=== PATIENT | male | born 1940 | race Caucasian/White ===

== ENCOUNTER 2020-09-23 15:15 | Inpatient (IN) ==
[2020-09-23] MEDS ORDERED: GI Cocktail 40 ML EACH PO ONE (15:41)
[2020-09-23] MEDS: Nitroglycerin 0.4 MG TAB.SUBL SL PRN ×3 (16:15→23:23)
[2020-09-23 16:20] LABS: Basophils # 0.1 K/mcL (0.0-0.2); Basophils % 0.5 %; Eosinophils # 0.1 K/mcL (0.0-0.6); Hematocrit 41.4 % (37.5-50.1); Hemoglobin 13.7 g/dL (12.9-16.9); Immature Granulocytes % 1.2 % (0-4); Lymphocytes # 1.3 K/mcL (0.6-4.6); Lymphocytes % 11.4 %; Mean Corpuscular HGB Conc 33.1 g/dL (31.6-35.5); Mean Corpuscular Hemoglobin 31.3 pg (28.0-33.3); Mean Corpuscular Volume 94.5 fL (83.0-100.0); Mean Platelet Volume 10.7 fL (9.4-12.4); Monocytes # 0.8 K/mcL (0.0-1.3); Monocytes % 6.8 %; Neutrophils # 8.9 K/mcL (1.6-8.9); Platelet Count 249 K/mcL (140-400); Red Blood Count 4.38 M/mcL (4.19-5.50); Red Cell Distribution Width 13.2 % (11.5-14.5); Segmented Neutrophils % 79.1 %; White Blood Count 11.3 K/mcL (4.3-11.1)
[2020-09-23] MEDS ORDERED: *HR* Ticagrelor 90 MG TABLET PO ONE (16:23)
[2020-09-23] MEDS ORDERED: ISOVUE-370 200 ML INFUS..BTL ONE ×2 (16:26→16:59)
[2020-09-23] MEDS ORDERED: *HR* Heparin 10,000 UNIT/10 ML VIAL ONE (16:26)
[2020-09-23] MEDS ORDERED: *HR* Ticagrelor 90 MG TABLET ONE (16:26)
[2020-09-23] MEDS ORDERED: 0.9 % Sodium Chloride 1,000 ML ONE ×3 (16:26→16:27)
[2020-09-23] MEDS ORDERED: Heparin 1,000 UNITS/500 mL 500 ML ONE (16:26)
[2020-09-23] MEDS ORDERED: Aspirin 81 MG TAB.CHEW ONE (16:26)
[2020-09-23] MEDS ORDERED: *HR* Heparin 5,000 UNIT/ML VIAL ONE (16:26)
[2020-09-23] MEDS ORDERED: Nitroglycerin 1,000 MCG/10 ML VIAL IV ONE (16:27)
[2020-09-23] MEDS ORDERED: Aspirin 81 MG TAB.CHEW PO STA (16:27)
[2020-09-23] MEDS ORDERED: *HR* Heparin 5,000 UNIT/ML VIAL IVP ONE (16:28)
[2020-09-23 16:29] LABS: INR 1.1; Prothrombin Time 12.7 Seconds (9.4-12.1)
[2020-09-23 16:31] LABS: Activated Partial Thrombo Time 30.5 Seconds (26.0-36.0)
[2020-09-23] MEDS ORDERED: Perflutren Lipid Microsphere 1.3 ML in 0.9 % Sodium Chloride 8.7 ML IVP PRN ×2 (16:41→16:42)
[2020-09-23 16:49] LABS: Alanine Aminotransferase 10 Units/L (7-52); Albumin 4.3 g/dL (3.5-5.7); Albumin/Globulin Ratio 1.7 (1.1-2.2); Alkaline Phosphatase 79 Units/L (34-104); Aspartate Amino Transferase 15 Units/L (13-39); BUN/Creatinine Ratio 19 (6-26); Bilirubin,Direct 0.1 mg/dL (0.0-0.2); Bilirubin,Indirect 0.3 mg/dL (0.0-1.0); Bilirubin,Total 0.4 mg/dL (0.3-1.0); Blood Urea Nitrogen 26 mg/dL (8-23); Calcium 9.8 mg/dL (8.6-10.3); Carbon Dioxide 29 mEq/L (23-29); Chloride 98 mEq/L (98-107); Globulin 2.6 g/dL (2.4-3.5); Glucose 244 mg/dL (70-105); Lipase 45 Units/L (11-82); Osmolality,Calculated 295 (280-300); Potassium 4.5 mEq/L (3.5-5.1); Sodium 136 mEq/L (136-145); Total Protein 6.9 g/dL (6.4-8.9); eGFR For African Americans > 60 (> 60); eGFR For Non-African Americans 51 (> 60)
[2020-09-23] MEDS ORDERED: *HR* FentaNYL (PF) 100 MCG/2 ML VIAL ONE (16:51)
[2020-09-23] MEDS ORDERED: *HR* Midazolam HCl 2 MG/2 ML VIAL ONE (16:51)
[2020-09-23] MEDS ORDERED: *HR* Bivalirudin 250 MG VIAL IVC ONE ×2 (16:54→17:31)
[2020-09-23] MEDS ORDERED: 0.9 % Sodium Chloride 1,000 ML IVC SCH (18:15)
[2020-09-23] MEDS ORDERED: Dextrose Gel 15 GM/37.5 ML TUBE PO PRN ×2 (18:19)
[2020-09-23] MEDS ORDERED: D5% in Water 1,000 ML IVC PRN (18:19)
[2020-09-23] MEDS ORDERED: *HR* Dextrose 50 % in Water (Vial) 50 ML VIAL IVP PRN (18:19)
[2020-09-23 18:50] LABS: Estimated Average Glucose 180 mg/dl
[2020-09-24] MEDS ORDERED: *HR* Atropine Sulfate 1 MG/10 ML SYRINGE ONE (00:04)
[2020-09-24 04:45] LABS: Basophils % 0.3 %; Eosinophils % 0.2 %; Hematocrit 36.8 % (37.5-50.1); Hemoglobin 12.3 g/dL (12.9-16.9); Immature Granulocytes % 0.8 % (0-4); Lymphocytes # 1.3 K/mcL (0.6-4.6); Lymphocytes % 9.9 %; Mean Corpuscular HGB Conc 33.4 g/dL (31.6-35.5); Mean Corpuscular Hemoglobin 30.9 pg (28.0-33.3); Mean Corpuscular Volume 92.5 fL (83.0-100.0); Mean Platelet Volume 10.6 fL (9.4-12.4); Monocytes # 1.3 K/mcL (0.0-1.3); Monocytes % 10.2 %; Neutrophils # 10.3 K/mcL (1.6-8.9); Platelet Count 222 K/mcL (140-400); Red Blood Count 3.98 M/mcL (4.19-5.50); Red Cell Distribution Width 13.3 % (11.5-14.5); Segmented Neutrophils % 78.6 %; White Blood Count 13.1 K/mcL (4.3-11.1)
[2020-09-24 05:05] LABS: BUN/Creatinine Ratio 18 (6-26); Blood Urea Nitrogen 21 mg/dL (8-23); Calcium 9.2 mg/dL (8.6-10.3); Carbon Dioxide 24 mEq/L (23-29); Chloride 101 mEq/L (98-107); Cholesterol 87 mg/dL (< 200); Glucose 149 mg/dL (70-105); HDL Cholesterol 29 mg/dL (40-59); LDL Cholesterol,Calculated 29 mg/dL (< 100); Osmolality,Calculated 286 (280-300); Sodium 135 mEq/L (136-145); Triglycerides 143 mg/dL (< 150); eGFR For African Americans > 60 (> 60); eGFR For Non-African Americans 60 (> 60)
[2020-09-24] MEDS: Nitroglycerin 0.4 MG TAB.SUBL SL PRN (05:54)
[2020-09-24] MEDS ORDERED: *HR* Heparin 5,000 UNIT/ML VIAL IVP PRN (06:19)
[2020-09-24] MEDS ORDERED: Heparin 25,000UNIT/250ML 1/2NS 25,000 UNIT/250 ML IV.SOLN IVC SCH (06:30)
[2020-09-24 07:06] LABS: Hemoglobin 12.8 g/dL (12.9-16.9); Mean Corpuscular HGB Conc 32.8 g/dL (31.6-35.5); Mean Corpuscular Hemoglobin 30.6 pg (28.0-33.3); Mean Corpuscular Volume 93.3 fL (83.0-100.0); Mean Platelet Volume 10.6 fL (9.4-12.4); Platelet Count 252 K/mcL (140-400); Red Blood Count 4.18 M/mcL (4.19-5.50); Red Cell Distribution Width 13.5 % (11.5-14.5); White Blood Count 13.4 K/mcL (4.3-11.1)
[2020-09-24] MEDS ORDERED: Morphine Sulfate 2 MG/ML SYRINGE IVP ONE ×2 (07:12→17:42)
[2020-09-24 07:15] LABS: Heparin anti-factor XA UFH 0.04 IU/mL (0.30-0.70); INR 1.1; Prothrombin Time 12.8 Seconds (9.4-12.1)
[2020-09-24] MEDS: carvediloL 6.25 MG TABLET PO SCH ×2 (08:09→17:34)
[2020-09-24] MEDS ORDERED: Aspirin 81 MG TAB.CHEW PO SCH (09:00)
[2020-09-24] MEDS ORDERED: *HR* Ticagrelor 90 MG TABLET PO SCH (09:00)
[2020-09-24] MEDS ORDERED: *HR* Heparin 10,000 UNIT/10 ML VIAL ONE (09:34)
[2020-09-24] MEDS ORDERED: ISOVUE-370 200 ML INFUS..BTL ONE (09:34)
[2020-09-24] MEDS ORDERED: Heparin 1,000 UNITS/500 mL 500 ML ONE (09:34)
[2020-09-24] MEDS ORDERED: Nitroglycerin 1,000 MCG/10 ML VIAL IV ONE (09:34)
[2020-09-24] MEDS ORDERED: 0.9 % Sodium Chloride 1,000 ML ONE ×2 (09:34→09:37)
[2020-09-24] MEDS: Insulin LISPRO 300 UNITS/3 ML VIAL SQ SCH ×3 (09:38→17:26)
[2020-09-24] MEDS ORDERED: *HR* Midazolam HCl 2 MG/2 ML VIAL ONE (09:40)
[2020-09-24] MEDS ORDERED: *HR* FentaNYL (PF) 100 MCG/2 ML VIAL ONE (09:40)
[2020-09-24] MEDS ORDERED: Isosorbide MONOnitrate (24 HR) 30 MG TAB.ER.24H PO SCH (15:45)
[2020-09-24] MEDS ORDERED: Dextrose Gel 15 GM/37.5 ML TUBE PO PRN ×2 (17:42)
[2020-09-24] MEDS ORDERED: Nitroglycerin 0.4 MG TAB.SUBL SL PRN (17:42)
[2020-09-24] MEDS ORDERED: D5% in Water 1,000 ML IVC PRN (17:42)
[2020-09-24] MEDS ORDERED: Perflutren Lipid Microsphere 1.3 ML in 0.9 % Sodium Chloride 8.7 ML IVP PRN (17:42)
[2020-09-24] MEDS ORDERED: *HR* Dextrose 50 % in Water (Vial) 50 ML VIAL IVP PRN (17:42)
[2020-09-24] MEDS ORDERED: *HR* Heparin 5,000 UNIT/ML VIAL SQ SCH (18:00)
[2020-09-24] MEDS: *HR* Heparin 5,000 UNIT/ML VIAL SQ SCH (18:16)
[2020-09-24] MEDS: *HR* Ticagrelor 90 MG TABLET PO SCH (20:15)
[2020-09-25] MEDS: *HR* Heparin 5,000 UNIT/ML VIAL SQ SCH (05:45)
[2020-09-25 06:00] LABS: Basophils % 0.4 %; Eosinophils # 0.1 K/mcL (0.0-0.6); Eosinophils % 0.7 %; Hematocrit 33.6 % (37.5-50.1); Immature Granulocytes % 0.9 % (0-4); Lymphocytes # 1.6 K/mcL (0.6-4.6); Lymphocytes % 14.9 %; Mean Corpuscular HGB Conc 32.1 g/dL (31.6-35.5); Mean Corpuscular Hemoglobin 30.5 pg (28.0-33.3); Mean Corpuscular Volume 94.9 fL (83.0-100.0); Mean Platelet Volume 10.4 fL (9.4-12.4); Monocytes # 1.2 K/mcL (0.0-1.3); Monocytes % 11.2 %; Neutrophils # 7.7 K/mcL (1.6-8.9); Platelet Count 199 K/mcL (140-400); Red Blood Count 3.54 M/mcL (4.19-5.50); Red Cell Distribution Width 13.7 % (11.5-14.5); Segmented Neutrophils % 71.9 %; White Blood Count 10.7 K/mcL (4.3-11.1)
[2020-09-25 06:01] LABS: Hemoglobin 10.8 g/dL (12.9-16.9)
[2020-09-25 06:23] LABS: BUN/Creatinine Ratio 18 (6-26); Blood Urea Nitrogen 25 mg/dL (8-23); Calcium 9.2 mg/dL (8.6-10.3); Carbon Dioxide 25 mEq/L (23-29); Chloride 102 mEq/L (98-107); Glucose 132 mg/dL (70-105); Osmolality,Calculated 288 (280-300); Potassium 4.1 mEq/L (3.5-5.1); Sodium 136 mEq/L (136-145); eGFR For African Americans > 60 (> 60); eGFR For Non-African Americans 50 (> 60)
[2020-09-25] MEDS ORDERED: carvediloL 6.25 MG TABLET PO SCH (08:00)
[2020-09-25] MEDS: Finasteride 5 MG TABLET PO SCH (08:58)
[2020-09-25] MEDS: Aspirin 81 MG TAB.CHEW PO SCH (08:58)
[2020-09-25] MEDS: Isosorbide MONOnitrate (24 HR) 30 MG TAB.ER.24H PO SCH (08:58)
[2020-09-25] MEDS: *HR* Ticagrelor 90 MG TABLET PO SCH ×2 (08:59→20:18)
[2020-09-25] MEDS ORDERED: Loratadine 10 MG TABLET PO SCH (09:00)
[2020-09-25] MEDS: Insulin LISPRO 300 UNITS/3 ML VIAL SQ SCH ×3 (09:04→16:53)
[2020-09-25] MEDS ORDERED: *HR* Heparin 5,000 UNIT/ML VIAL IVP ONE (09:23)
[2020-09-25] MEDS ORDERED: *HR* Heparin 5,000 UNIT/ML VIAL IVP PRN ×2 (09:23)
[2020-09-25] MEDS: Heparin 25,000UNIT/250ML 1/2NS 25,000 UNIT/250 ML IV.SOLN IVC SCH (12:22)
[2020-09-25] MEDS: *HR* Amiodarone 200 MG TABLET PO SCH ×2 (12:31→20:17)
[2020-09-25 14:08] LABS: Hematocrit 32.8 % (37.5-50.1); Hemoglobin 10.8 g/dL (12.9-16.9); Mean Corpuscular HGB Conc 32.9 g/dL (31.6-35.5); Mean Corpuscular Hemoglobin 31.5 pg (28.0-33.3); Mean Corpuscular Volume 95.6 fL (83.0-100.0); Mean Platelet Volume 11.1 fL (9.4-12.4); Platelet Count 211 K/mcL (140-400); Red Blood Count 3.43 M/mcL (4.19-5.50); Red Cell Distribution Width 13.5 % (11.5-14.5); White Blood Count 10.3 K/mcL (4.3-11.1)
[2020-09-25 14:29] LABS: Calcium 8.8 mg/dL (8.6-10.3); Potassium 4.2 mEq/L (3.5-5.1)
[2020-09-25] MEDS ORDERED: Loratadine 10 MG TABLET PO ONE (19:37)
[2020-09-25] MEDS: Metoprolol XL (24 HR) Succ 25 MG TAB.ER.24H PO SCH (20:18)
[2020-09-26 07:21] VITALS: BP 132/74
[2020-09-26] MEDS: Finasteride 5 MG TABLET PO SCH (08:16)
[2020-09-26] MEDS: Isosorbide MONOnitrate (24 HR) 30 MG TAB.ER.24H PO SCH (08:16)
[2020-09-26] MEDS: *HR* Ticagrelor 90 MG TABLET PO SCH (08:17)
[2020-09-26] MEDS: Metoprolol XL (24 HR) Succ 25 MG TAB.ER.24H PO SCH (08:17)
[2020-09-26] MEDS: Aspirin 81 MG TAB.CHEW PO SCH (08:18)
[2020-09-26] MEDS: Insulin LISPRO 300 UNITS/3 ML VIAL SQ SCH ×2 (08:18→12:45)
[2020-09-26] MEDS: *HR* Amiodarone 200 MG TABLET PO SCH (08:18)
[2020-09-26] MEDS ORDERED: 0.9 % Sodium Chloride 1,000 ML IVC SCH (09:00)
[2020-09-26 10:00] LABS: Basophils # 0.1 K/mcL (0.0-0.2); Basophils % 0.7 %; Eosinophils # 0.1 K/mcL (0.0-0.6); Eosinophils % 0.9 %; Hematocrit 34.9 % (37.5-50.1); Hemoglobin 11.4 g/dL (12.9-16.9); Immature Granulocytes % 0.9 % (0-4); Lymphocytes # 1.6 K/mcL (0.6-4.6); Lymphocytes % 16.2 %; Mean Corpuscular HGB Conc 32.7 g/dL (31.6-35.5); Mean Corpuscular Hemoglobin 30.9 pg (28.0-33.3); Mean Corpuscular Volume 94.6 fL (83.0-100.0); Monocytes # 0.8 K/mcL (0.0-1.3); Monocytes % 8.5 %; Platelet Count 225 K/mcL (140-400); Red Blood Count 3.69 M/mcL (4.19-5.50); Red Cell Distribution Width 13.6 % (11.5-14.5); Segmented Neutrophils % 72.8 %; White Blood Count 9.7 K/mcL (4.3-11.1)
[2020-09-26 10:21] LABS: Potassium 3.8 mEq/L (3.5-5.1)
[2020-09-26] MEDS ORDERED: Apixaban 5 MG TABLET PO SCH (12:30)
[2020-09-26] MEDS: Heparin 25,000UNIT/250ML 1/2NS 25,000 UNIT/250 ML IV.SOLN IVC SCH (12:55)
[2020-09-27] MEDS ORDERED: *HR* Amiodarone 200 MG TABLET PO SCH (09:00)
== END 2020-09-26 15:45 | disposition home or self-care (01) | DRG 247 ==
LOC: EMEROOARM 15:15 → ICNU 17:06
PROVIDERS: ADMIT Internal Medicine; ATTEND Internal Medicine

== ENCOUNTER 2020-12-27 05:12 | Inpatient (IN) ==
[2020-12-27 06:19] LABS: Basophils # 0.1 K/mcL (0.0-0.2); Basophils % 0.5 %; Eosinophils # 0.2 K/mcL (0.0-0.6); Eosinophils % 1.3 %; Hematocrit 28.5 % (37.5-50.1); Hemoglobin 9.1 g/dL (12.9-16.9); Immature Granulocytes % 0.7 % (0-4); Lymphocytes # 2.1 K/mcL (0.6-4.6); Lymphocytes % 17.4 %; Mean Corpuscular HGB Conc 31.9 g/dL (31.6-35.5); Mean Corpuscular Hemoglobin 28.2 pg (28.0-33.3); Mean Corpuscular Volume 88.2 fL (83.0-100.0); Mean Platelet Volume 10.1 fL (9.4-12.4); Monocytes % 8.1 %; Neutrophils # 8.6 K/mcL (1.6-8.9); Platelet Count 416 K/mcL (140-400); Red Blood Count 3.23 M/mcL (4.19-5.50); Red Cell Distribution Width 15.9 % (11.5-14.5); White Blood Count 11.9 K/mcL (4.3-11.1)
[2020-12-27 06:42] LABS: Alanine Aminotransferase 19 Units/L (7-52); Albumin 3.1 g/dL (3.5-5.7); Albumin/Globulin Ratio 0.8 (1.1-2.2); Alkaline Phosphatase 84 Units/L (34-104); Aspartate Amino Transferase 19 Units/L (13-39); BUN/Creatinine Ratio 10 (6-26); Bilirubin,Direct 0.2 mg/dL (0.0-0.2); Bilirubin,Indirect 0.3 mg/dL (0.0-1.0); Bilirubin,Total 0.5 mg/dL (0.3-1.0); Blood Urea Nitrogen 11 mg/dL (8-23); Calcium 9.1 mg/dL (8.6-10.3); Carbon Dioxide 28 mEq/L (23-29); Chloride 98 mEq/L (98-107); Globulin 3.7 g/dL (2.4-3.5); Glucose 111 mg/dL (70-105); Lipase 32 Units/L (11-82); Osmolality,Calculated 278 (280-300); Potassium 3.6 mEq/L (3.5-5.1); Sodium 134 mEq/L (136-145); Total Protein 6.8 g/dL (6.4-8.9); eGFR For African Americans > 60 (> 60); eGFR For Non-African Americans > 60 (> 60)
[2020-12-27] MEDS ORDERED: Isovue-370 500 ML BOTTLE IVP ONE (06:53)
[2020-12-27 08:09] LABS: Bacteria,Urine Few per hpf (None-Few); Bilirubin,Urine Negative (Negative); Blood,Urine Large (Negative); Clarity,Urine Clear (Clear); Color,Urine Colorless (Yellow); Glucose,Urine (UA) Normal (Normal); Ketones,Urine Negative (Negative); Leukocyte Esterase,Urine Moderate (Negative); Nitrite,Urine Negative (Negative); Protein,Urine Trace mg/dL (Neg-Trace); RBC,Urine TNTC per hpf (0-3); Specific Gravity,Urine 1.023 (1.010-1.025); Urobilinogen,Urine Normal (Normal)
[2020-12-27] MEDS ORDERED: Ondansetron 4 MG/2 ML VIAL IVP PRN (09:40)
[2020-12-27] MEDS ORDERED: Dextrose Gel 15 GM/37.5 ML TUBE PO PRN ×2 (09:40)
[2020-12-27] MEDS ORDERED: *HR* HYDROcodone/Acet 5/325 mg TABLET PO PRN (09:40)
[2020-12-27] MEDS ORDERED: D5% in Water 1,000 ML IVC PRN (09:40)
[2020-12-27] MEDS ORDERED: *HR* Dextrose 50 % in Water (Vial) 50 ML VIAL IVP PRN (09:40)
[2020-12-27] MEDS ORDERED: Naloxone 0.4 MG/ML INJ IVP PRN (09:40)
[2020-12-27] MEDS ORDERED: Aspirin 81 MG TAB.CHEW PO SCH (09:45)
[2020-12-27] MEDS: *HR* Amiodarone 200 MG TABLET PO SCH (12:21)
[2020-12-27] MEDS: Isosorbide MONOnitrate (24 HR) 30 MG TAB.ER.24H PO SCH (12:21)
[2020-12-27] MEDS: Metoprolol XL (24 HR) Succ 25 MG TAB.ER.24H PO SCH ×2 (12:21→20:49)
[2020-12-27] MEDS: Finasteride 5 MG TABLET PO SCH (12:22)
[2020-12-27] MEDS: *HR* Ticagrelor 90 MG TABLET PO SCH ×2 (12:22→20:49)
[2020-12-27] MEDS: Insulin LISPRO 300 UNITS/3 ML VIAL SUBQ SCH ×2 (12:23→16:22)
[2020-12-27 12:31] LABS: Hematocrit 26.6 % (37.5-50.1); Hemoglobin 8.4 g/dL (12.9-16.9)
[2020-12-27] MEDS ORDERED: polyethylene glycoL 3350 17 GM POWD.PACK PO PRN (13:07)
[2020-12-27 20:28] LABS: Hematocrit 24.1 % (37.5-50.1); Hemoglobin 7.7 g/dL (12.9-16.9)
[2020-12-28] MEDS ORDERED: 0.9 % Sodium Chloride 250 ML IVC SCH (02:45)
[2020-12-28] MEDS: Acetaminophen 325 MG TABLET PO PRN ×2 (02:53→15:42)
[2020-12-28] MEDS: Loratadine 10 MG TABLET PO SCH (02:59)
[2020-12-28 03:38] LABS: Basophils # 0.1 K/mcL (0.0-0.2); Basophils % 0.5 %; Eosinophils # 0.1 K/mcL (0.0-0.6); Hemoglobin 7.7 g/dL (12.9-16.9); Immature Granulocytes % 0.8 % (0-4); Lymphocytes # 1.2 K/mcL (0.6-4.6); Lymphocytes % 11.1 %; Mean Corpuscular HGB Conc 32.1 g/dL (31.6-35.5); Mean Corpuscular Volume 87.3 fL (83.0-100.0); Mean Platelet Volume 9.9 fL (9.4-12.4); Monocytes % 9.1 %; Neutrophils # 8.3 K/mcL (1.6-8.9); Platelet Count 342 K/mcL (140-400); Red Blood Count 2.75 M/mcL (4.19-5.50); Red Cell Distribution Width 16.1 % (11.5-14.5); Segmented Neutrophils % 77.5 %; White Blood Count 10.7 K/mcL (4.3-11.1)
[2020-12-28 03:54] LABS: BUN/Creatinine Ratio 11 (6-26); Blood Urea Nitrogen 13 mg/dL (8-23); Calcium 8.3 mg/dL (8.6-10.3); Carbon Dioxide 27 mEq/L (23-29); Chloride 100 mEq/L (98-107); Glucose 110 mg/dL (70-105); Magnesium 1.6 mg/dL (1.6-2.6); Osmolality,Calculated 279 (280-300); Phosphorous 1.7 mg/dL (2.7-4.5); Potassium 3.4 mEq/L (3.5-5.1); Sodium 134 mEq/L (136-145); eGFR For African Americans > 60 (> 60); eGFR For Non-African Americans 59 (> 60)
[2020-12-28] MEDS: lisinopriL 20 MG TABLET PO SCH (07:55)
[2020-12-28] MEDS: Insulin LISPRO 300 UNITS/3 ML VIAL SUBQ SCH ×3 (07:55→17:38)
[2020-12-28] MEDS: Isosorbide MONOnitrate (24 HR) 30 MG TAB.ER.24H PO SCH (07:56)
[2020-12-28] MEDS: Metoprolol XL (24 HR) Succ 25 MG TAB.ER.24H PO SCH ×2 (07:56→22:52)
[2020-12-28] MEDS: *HR* Amiodarone 200 MG TABLET PO SCH (07:56)
[2020-12-28] MEDS: *HR* Ticagrelor 90 MG TABLET PO SCH ×2 (07:56→20:31)
[2020-12-28] MEDS: Finasteride 5 MG TABLET PO SCH (07:56)
[2020-12-28] MEDS: Magnesium Oxide 400 MG TABLET PO SCH (07:56)
[2020-12-28] MEDS ORDERED: Potassium Phosphate 44 MEQ in 0.9 % Sodium Chloride 250 ML IVPB ONE (08:29)
[2020-12-28] MEDS ORDERED: SELENIUM 200 MCG PO SCH (09:00)
[2020-12-28] MEDS ORDERED: Finasteride 5 MG TABLET PO SCH (09:00)
[2020-12-28] MEDS ORDERED: Loratadine 10 MG TABLET PO SCH (09:00)
[2020-12-28 09:12] LABS: Hematocrit 28.2 % (37.5-50.1); Hemoglobin 9.1 g/dL (12.9-16.9)
[2020-12-28 17:06] LABS: Hematocrit 26.3 % (37.5-50.1); Hemoglobin 8.5 g/dL (12.9-16.9)
[2020-12-28 21:57] LABS: Hemoglobin 8.7 g/dL (12.9-16.9)
[2020-12-29 05:41] LABS: Basophils # 0.1 K/mcL (0.0-0.2); Basophils % 0.6 %; Eosinophils # 0.1 K/mcL (0.0-0.6); Eosinophils % 1.2 %; Hematocrit 26.8 % (37.5-50.1); Hemoglobin 8.5 g/dL (12.9-16.9); Immature Granulocytes % 0.8 % (0-4); Mean Corpuscular HGB Conc 31.7 g/dL (31.6-35.5); Mean Corpuscular Hemoglobin 27.8 pg (28.0-33.3); Mean Corpuscular Volume 87.6 fL (83.0-100.0); Mean Platelet Volume 10.1 fL (9.4-12.4); Monocytes # 0.9 K/mcL (0.0-1.3); Monocytes % 8.4 %; Platelet Count 346 K/mcL (140-400); Red Blood Count 3.06 M/mcL (4.19-5.50); Red Cell Distribution Width 16.1 % (11.5-14.5); White Blood Count 11.2 K/mcL (4.3-11.1)
[2020-12-29 06:49] LABS: BUN/Creatinine Ratio 10 (6-26); Blood Urea Nitrogen 13 mg/dL (8-23); Calcium 8.5 mg/dL (8.6-10.3); Carbon Dioxide 26 mEq/L (23-29); Chloride 102 mEq/L (98-107); Glucose 115 mg/dL (70-105); Magnesium 1.6 mg/dL (1.6-2.6); Osmolality,Calculated 283 (280-300); Phosphorous 3.2 mg/dL (2.7-4.5); Potassium 3.5 mEq/L (3.5-5.1); Sodium 136 mEq/L (136-145); eGFR For African Americans > 60 (> 60); eGFR For Non-African Americans 54 (> 60)
[2020-12-29] MEDS: Metoprolol XL (24 HR) Succ 25 MG TAB.ER.24H PO SCH ×2 (07:01→19:30)
[2020-12-29] MEDS: lisinopriL 20 MG TABLET PO SCH (07:01)
[2020-12-29] MEDS: *HR* Amiodarone 200 MG TABLET PO SCH (08:57)
[2020-12-29] MEDS: Magnesium Oxide 400 MG TABLET PO SCH (08:57)
[2020-12-29] MEDS: Loratadine 10 MG TABLET PO SCH (08:58)
[2020-12-29] MEDS: hydroCHLOROthiazide 25 MG TABLET PO SCH (08:58)
[2020-12-29] MEDS: Insulin LISPRO 300 UNITS/3 ML VIAL SUBQ SCH ×3 (08:59→16:07)
[2020-12-29] MEDS: *HR* Ticagrelor 90 MG TABLET PO SCH ×2 (08:59→19:30)
[2020-12-29] MEDS: Isosorbide MONOnitrate (24 HR) 30 MG TAB.ER.24H PO SCH (09:01)
[2020-12-29] MEDS: Finasteride 5 MG TABLET PO SCH (09:01)
[2020-12-29] MEDS: ALPRAZolam 0.25 MG TABLET PO PRN ×2 (09:04→19:29)
[2020-12-29] MEDS ORDERED: Isovue-370 500 ML BOTTLE IVP ONE (09:06)
[2020-12-29] MEDS ORDERED: amLODIPine 5 MG TABLET PO SCH (10:15)
[2020-12-29] MEDS: amLODIPine 5 MG TABLET PO SCH (16:04)
[2020-12-30 01:27] LABS: Basophils # 0.1 K/mcL (0.0-0.2); Basophils % 0.6 %; Eosinophils # 0.2 K/mcL (0.0-0.6); Eosinophils % 1.5 %; Hematocrit 26.5 % (37.5-50.1); Hemoglobin 8.6 g/dL (12.9-16.9); Immature Granulocytes % 0.7 % (0-4); Lymphocytes # 1.3 K/mcL (0.6-4.6); Lymphocytes % 12.2 %; Mean Corpuscular HGB Conc 32.5 g/dL (31.6-35.5); Mean Corpuscular Hemoglobin 27.7 pg (28.0-33.3); Mean Corpuscular Volume 85.5 fL (83.0-100.0); Monocytes # 0.9 K/mcL (0.0-1.3); Monocytes % 8.6 %; Neutrophils # 8.2 K/mcL (1.6-8.9); Platelet Count 361 K/mcL (140-400); Red Cell Distribution Width 16.3 % (11.5-14.5); Segmented Neutrophils % 76.4 %; White Blood Count 10.8 K/mcL (4.3-11.1)
[2020-12-30 01:50] LABS: % Iron Saturation 7 % (20-55); BUN/Creatinine Ratio 10 (6-26); Blood Urea Nitrogen 13 mg/dL (8-23); Calcium 8.5 mg/dL (8.6-10.3); Carbon Dioxide 28 mEq/L (23-29); Chloride 99 mEq/L (98-107); Glucose 111 mg/dL (70-105); Iron 15 mcg/dL (65-175); Magnesium 1.6 mg/dL (1.6-2.6); Osmolality,Calculated 283 (280-300); Phosphorous 3.6 mg/dL (2.7-4.5); Potassium 2.9 mEq/L (3.5-5.1); Sodium 136 mEq/L (136-145); Transferrin 147 mg/dL (203-362); eGFR For African Americans > 60 (> 60); eGFR For Non-African Americans 51 (> 60)
[2020-12-30 02:08] LABS: Ferritin 227 ng/mL (20-250)
[2020-12-30 02:13] LABS: Folate 11.1 ng/mL (3.0-16.0)
[2020-12-30] MEDS: Insulin LISPRO 300 UNITS/3 ML VIAL SUBQ SCH ×2 (08:25→11:45)
[2020-12-30] MEDS ORDERED: Potassium Chloride 20 MEQ, Lidocaine 1% 2 ML in 0.9 % Sodium Chloride 250 ML IVPB ONE (08:28)
[2020-12-30] MEDS: Isosorbide MONOnitrate (24 HR) 30 MG TAB.ER.24H PO SCH (08:37)
[2020-12-30] MEDS: *HR* Amiodarone 200 MG TABLET PO SCH (08:37)
[2020-12-30] MEDS: lisinopriL 20 MG TABLET PO SCH (08:38)
[2020-12-30] MEDS: Metoprolol XL (24 HR) Succ 25 MG TAB.ER.24H PO SCH (08:38)
[2020-12-30] MEDS: *HR* Ticagrelor 90 MG TABLET PO SCH (08:38)
[2020-12-30] MEDS: Finasteride 5 MG TABLET PO SCH (08:38)
[2020-12-30] MEDS: hydroCHLOROthiazide 25 MG TABLET PO SCH (08:38)
[2020-12-30] MEDS: Magnesium Oxide 400 MG TABLET PO SCH (08:38)
[2020-12-30] MEDS: amLODIPine 5 MG TABLET PO SCH (08:38)
[2020-12-30] MEDS: Loratadine 10 MG TABLET PO SCH (08:39)
[2020-12-30 10:53] VITALS: BP 131/62
[2020-12-30 13:03] LABS: Calcium 8.2 mg/dL (8.6-10.3); Potassium 3.3 mEq/L (3.5-5.1)
== END 2020-12-30 14:59 | disposition home or self-care (01) | DRG 698 ==
LOC: EMEROOARM 05:12 → 3BNU 05:12 → SUATTDRO 09:33 → 3BNU 10:11
PROVIDERS: ADMIT Internal Medicine; ATTEND Internal Medicine

== ENCOUNTER 2022-02-16 08:21 | Inpatient (IN) ==
[2022-02-16] MEDS ORDERED: 0.9 % Sodium Chloride 1,000 ML ONE ×4 (08:28→12:21)
[2022-02-16] MEDS ORDERED: Heparin 1,000 UNITS/500 mL 1,000 ML ONE (10:33)
[2022-02-16] MEDS ORDERED: Protamine Sulfate 50 MG/5 ML VIAL IVP ONE ×2 (10:33→12:37)
[2022-02-16] MEDS ORDERED: *HR* Heparin 10,000 UNIT/10 ML VIAL ONE (10:33)
[2022-02-16] MEDS ORDERED: ISOVUE-370 200 ML INFUS..BTL ONE (10:34)
[2022-02-16] MEDS ORDERED: *HR* Rocuronium Bromide 50 MG/5 ML VIAL ONE ×2 (11:00→12:20)
[2022-02-16] MEDS ORDERED: Perflutren Lipid Microsphere 1.3 ML in 0.9 % Sodium Chloride 8.7 ML IVP PRN (14:25)
[2022-02-16] MEDS ORDERED: Dextrose 4 GM Chewable Tablets PO PRN ×2 (14:27)
[2022-02-16] MEDS ORDERED: D5% in Water 1,000 ML IVC PRN (14:27)
[2022-02-16] MEDS ORDERED: *HR* Dextrose 50 % in Water (Syg) 50 ML SYRINGE IVP PRN (14:27)
[2022-02-16] MEDS: Insulin LISPRO 300 UNITS/3 ML VIAL SUBQ SCH (16:56)
[2022-02-16] MEDS ORDERED: hydrOXYzine pamoate 25 MG CAPSULE PO PRN (19:57)
[2022-02-16] MEDS ORDERED: ALPRAZolam 0.25 MG TABLET PO PRN (20:00)
[2022-02-16] MEDS: Apixaban 5 MG TABLET PO SCH (20:14)
[2022-02-16] MEDS: carvediloL 6.25 MG TABLET PO SCH (20:14)
[2022-02-16] MEDS: Sucralfate 1 GM TABLET PO SCH (22:41)
[2022-02-17 05:57] LABS: Basophils % 0.2 %; Hematocrit 28.4 % (37.5-50.1); Hemoglobin 9.4 g/dL (12.9-16.9); Immature Granulocytes % 0.4 % (0-4); Lymphocytes # 0.9 K/mcL (0.6-4.6); Lymphocytes % 10.9 %; Mean Corpuscular HGB Conc 33.1 g/dL (31.6-35.5); Mean Corpuscular Hemoglobin 30.4 pg (28.0-33.3); Mean Corpuscular Volume 91.9 fL (83.0-100.0); Mean Platelet Volume 11.4 fL (9.4-12.4); Monocytes # 0.5 K/mcL (0.0-1.3); Neutrophils # 6.8 K/mcL (1.6-8.9); Platelet Count 179 K/mcL (140-400); Red Blood Count 3.09 M/mcL (4.19-5.50); Red Cell Distribution Width 14.4 % (11.5-14.5); Segmented Neutrophils % 82.5 %; White Blood Count 8.3 K/mcL (4.3-11.1)
[2022-02-17 06:00] LABS: INR 1.9; Prothrombin Time 21.5 Seconds (9.4-12.1)
[2022-02-17] MEDS: Sucralfate 1 GM TABLET PO SCH (06:28)
[2022-02-17 06:34] LABS: Calcium 8.8 mg/dL (8.6-10.3); Potassium 3.7 mEq/L (3.5-5.1)
[2022-02-17] MEDS ORDERED: Sucralfate 1 GM TABLET PO SCH ×2 (07:30→09:00)
[2022-02-17] MEDS: Insulin LISPRO 300 UNITS/3 ML VIAL SUBQ SCH ×2 (07:51→12:38)
[2022-02-17] MEDS: carvediloL 6.25 MG TABLET PO SCH (07:52)
[2022-02-17] MEDS: Apixaban 5 MG TABLET PO SCH (07:52)
[2022-02-17] MEDS ORDERED: Finasteride 5 MG TABLET PO SCH (09:00)
[2022-02-17] MEDS ORDERED: lisinopriL 10 MG TABLET PO SCH (09:00)
[2022-02-17] MEDS ORDERED: Loratadine 10 MG TABLET PO SCH (09:00)
[2022-02-17] MEDS ORDERED: hydroCHLOROthiazide 25 MG TABLET PO SCH (09:00)
[2022-02-17] MEDS ORDERED: Isosorbide MONOnitrate (24 HR) 30 MG TAB.ER.24H PO SCH (09:00)
[2022-02-17] MEDS ORDERED: *HR* Amiodarone 200 MG TABLET PO SCH (09:00)
[2022-02-17] MEDS ORDERED: Magnesium Oxide 400 MG TABLET PO SCH (09:00)
[2022-02-17] MEDS ORDERED: amLODIPine 5 MG TABLET PO SCH (09:00)
[2022-02-17 09:19] LABS: Hematocrit 27.9 % (37.5-50.1); Hemoglobin 9.3 g/dL (12.9-16.9)
[2022-02-17 10:33] VITALS: BP 169/52; PULSE 52; TEMP 98; O2SAT 97
== END 2022-02-17 13:23 | disposition home or self-care (01) | DRG 274 ==
LOC: INVDIALAB 08:21 → 2NENU 14:10
PROVIDERS: ADMIT Internal Medicine Clinical Cardiac Electrophysiology; ATTEND Internal Medicine Clinical Cardiac Electrophysiology